=== PATIENT | male | born 1975 | race African-American/Black ===

== ENCOUNTER 2025-02-15 15:58 | Emergency (ER) | payer MEDICARE, OTHER ==
[~2025-02-15] VITALS: Ht 188 cm; Wt 116.0 kg
[2025-02-15 15:59] VITALS: TEMP 98.3; O2SAT 98
[2025-02-15 19:11] VITALS: BP 132/74; PULSE 92; RESP 18
[2025-02-15] MEDS: KETOROLAC 15MG/ML VIAL IM ONE (19:11)
[2025-02-15 19:16] LABS: BASOPHILS % 1.7 % (0.0-2.0); EOSINOPHILS % 4.2 % (0.0-5.0); HEMATOCRIT. 38.6 % (42.0-52.0); HEMOGLOBIN. 12.5 g/dL (14.0-18.0); LYMPHOCYTES % 33.6 % (20.0-50.0); MEAN PLATELET VOLUME 7.4 fl (7.4-10.4); MONOCYTES % 5.6 % (2.0-8.0); NEUTROPHILS % 54.9 % (40.0-76.0); PLATELET 362 x1000/uL (130-400); RED BLOOD CELL COUNT 5.31 mill/uL (4.7-6.1); RED CELL DISTRIBUTION WIDTH 16.8 % (11.6-14.6)
[2025-02-15 19:28] LABS: CREATININE 0.9 mg/dL (0.6-1.3); UREA NITROGEN BLOOD 12 mg/dL (9-23)
[2025-02-15 19:29] LABS: ASPARTATE AMINOTRANSFERASE 14 IU/L (<34); ETHANOL BLOOD < 10 mg/dL (<10); PROTEIN TOTAL 7.7 g/dL (6.0-8.3)
[2025-02-15 19:30] LABS: BILIRUBIN DIRECT < 0.1 mg/dL (<=3.0); BILIRUBIN TOTAL 0.3 mg/dL (0.1-1.0)
[2025-02-15] MEDS ORDERED: IBUP-1455 MT (21:38)
[2025-02-15] MEDS ORDERED: LIDO-53 TP (21:38)
== END 2025-02-15 22:33 | disposition home or self-care (01) ==
LOC: ER 15:58 → EDBD 15:58 → ER 22:33
DX: M79.605 Pain in left leg (principal); M79.604 Pain in right leg; F20.9 Schizophrenia, unspecified; F31.9 Bipolar disorder, unspecified; Z59.00 Homelessness unspecified
CPT/HCPCS: 80076; 80048; 80320; 82550; 85025; 36415; 96372; 99283; J1885; G0480